=== PATIENT | female | born 1960 | race Caucasian/White ===

== ENCOUNTER → 2017-05-14 | Outpatient (CLI) | payer BC ==
--- NOTE | 2017-05-14 13:40 | Diagnostic Imaging Report ---
Right knee MRI without contrast. History: Knee pain. Decreased range of motion. Pain not responding to conservative management. Meniscal tear. Comparison: None. Technique: Multiplanar multi-sequence MRI of the knee without contrast. Findings: Medial compartment: There is a complex medial meniscus tear with a radial component at the posterior root best seen on axial series 2 image 22. The medial meniscus is partially subluxed to the periphery. The medial compartmental articular cartilage surfaces are thinned with regions of fraying in the patient. There is a subchondral microtrabecular fracture at the medial tibial plateau with underlying bone marrow edema best seen on series 3 image 10. No cortical fracture is seen. The medial collateral ligament complex is intact. Lateral compartment: No meniscal tear or cartilage abnormality. The LCL complex is normal. Intercondylar notch: The ACL and PCL are intact. Patellofemoral compartment: No chondromalacia or patellar dislocation. Extensor mechanism: The quadriceps and patellar tendons are normal. Other findings: There is a moderate-sized joint effusion and synovitis. There is no acute fracture, subluxation or avascular necrosis. IMPRESSION: Complex medial meniscus tear with radial component at the posterior root. Subchondral microtrabecular fracture at the medial tibial plateau with underlying bone marrow edema. No cortical fracture is seen. Signed by: Dr. Zuhair Nicolas M.D. on 05/14/2017 1:37 PM
== END ==
LOC: MRI 10:46
PROVIDERS: ATTEND Specialist
DX: S83.221A Peripheral tear of medial meniscus, current injury, right knee, initial encounter (principal)

== ENCOUNTER → 2017-06-03 | Day surgery (SDC) | payer BC ==
--- NOTE | 2017-06-02 11:20 | Diagnostic Imaging Report ---
PROCEDURE: X-RAY CHEST, TWO VIEWS COMPARISON: None. INDICATIONS: PREOPERATIVE CHEST XRAY FOR RIGHT KNEE SURGERY FINDINGS: Lungs are well-inflated. No focal airspace consolidation, pleural effusion, or pneumothorax. Atherosclerotic calcification of the thoracic aorta. Normal heart size. Calcified left hilar lymph node. No pulmonary edema. No acute osseous abnormality. CONCLUSION: No acute cardiopulmonary abnormality. Dictated by: Russel Toussaint M.D. on 06/02/2017 at 11:20 Electronically approved by: Russel Toussaint M.D. on 06/02/2017 at 11:20
[~2017-06-03] MED LIST: BUPIVACAINE 0.5%/EPI 30 ML SDV INJ ONE; CEFAZOLIN SOD 2 GM/D5W 50ML 50 ML IV ONE; CLOBETASOL PROP15 G1 TOP; DEXAMETHASONE SOD PHOS INJ 4 MG/ML VIAL ONE; DOXEPIN TOP; EPHEDRINE SULFATE INJ 50 MG/10 ML SYR ONE; FENTANYL CITRATE/PF 100MCG/2 ML INJ ONE; KETOROLAC TROMETHAMINE 30 MG/ML VIAL ONE; LIDOCAINE HCL 2% LOCAL INJ 5 ML SDV VIAL INJ ONE; MIDAZOLAM HCL 2 MG/2 ML VIAL ONE; ONDANSETRON HCL INJ 2 MG/ML VIAL ONE; PROPOFOL IV EMULSION 10 MG/ML 20 ML VIAL ONE; SEVOFLURANE INHAL SOLN 250 ML PEN BTL ONE; diclofenac TOP
--- OUTSIDE RECORDS SUMMARY | 2017-06-03 05:26 | XMS REPORT ---
[facility] Address Unknown Phone Unavailable Care Team Providers Care Cake Icer Name Role Phone CK BARRETT Unavailable Unavailable Problems This patient has no known problems. Allergies, Adverse Reactions, Alerts This patient has no known allergies or adverse reactions. Medications This patient has no known medications. Encounters Start Date/Time End Date/Time Encounter Type Admission Type Attending Clinicians Care Facility Care Department Encounter ID 2017-04-30 14:30:43 2017-04-30 14:30:43 Outpatient [facility] [id number] 2017-04-16 13:34:48 2017-04-16 13:34:48 Outpatient [facility] [id number] 2017-04-16 13:32:30 2017-04-16 13:32:30 Outpatient [facility] [id number] 2017-04-03 09:49:53 2017-04-03 09:49:53 Emergency [facility] [id number] 2017-03-26 13:35:04 2017-03-26 13:35:04 Outpatient [facility] [id number] 2017-01-26 16:12:07 2017-01-26 16:12:07 Outpatient [facility] [id number] 2017-01-26 14:30:51 2017-01-26 14:30:51 Outpatient [facility] [id number] 2016-12-25 00:00:00 2016-12-25 00:00:00 Outpatient [facility] [id number] 2016-12-18 00:00:00 2016-12-18 00:00:00 Outpatient [facility] [id number] 2016-12-10 15:36:26 2016-12-10 15:36:26 Outpatient [facility] [id number] 2016-12-05 00:00:00 2016-12-05 00:00:00 Outpatient [facility] [id number] 2016-11-28 00:00:00 2016-11-28 00:00:00 Outpatient [facility] [id number] 2016-11-28 00:00:00 2016-11-28 00:00:00 Outpatient [facility] [id number] 2016-10-29 15:17:04 2016-10-29 15:17:04 Outpatient [facility] [id number] 2016-10-20 14:40:24 2016-10-20 14:40:24 Outpatient [facility] [id number] 2016-10-17 15:39:59 2016-10-17 15:39:59 Outpatient [facility] [id number] 2016-10-17 14:55:17 2016-10-17 14:55:17 Outpatient [facility] [id number] 2016-09-09 08:29:10 2016-09-09 08:29:10 Outpatient [facility] [id number] 2016-08-29 08:49:25 2016-08-29 08:49:25 Outpatient [facility] [id number] 2016-08-25 10:17:23 2016-08-25 10:17:23 Outpatient [facility] [id number] Results Test Description Test Time Test Comments Text Results Atomic Results Result Comments CHEST 2 VIEWS [place] [address] Patient Name: PARIS SAXENA MR #: [id number] : 1960 Age/Sex: 57/F Req #: [id number] Adm Physician: Ordered by: CK BARRETT MD Report #: [id number] Location: OR Room/Bed: Procedure: [id number] DX/CHEST 2 VIEWS Exam Date: 06/02/17 Exam Time: 1015 REPORT STATUS: Signed PROCEDURE: X-RAY CHEST, TWO VIEWS COMPARISON: None. INDICATIONS: PREOPERATIVE CHEST XRAY FOR RIGHT KNEE SURGERY FINDINGS: Lungs are well-inflated. No focal airspace consolidation, pleural effusion, or pneumothorax. Atherosclerotic calcification of the thoracic aorta. Normal heart size. Calcified left hilar lymph node. No pulmonary edema. No acute osseous abnormality. CONCLUSION: No acute cardiopulmonary abnormality. Dictated by: Rosalind Arboleda M.D. on 06/02/2017 at 11:20 Electronically approved by: Rosalind Arboldea M.D. on 06/02/2017 at 11:20 Dictated By: ROSALIND ARBOLEDA MD Transcribed By: DALILA on 06/02/17 112 COPY TO: CK BARRETT MD MRI RIGHT KNEE WO [place] [address] Patient Name: PARIS SAXENA MR #: [id number] : 1960 Age/Sex: 56/F Req #: [id number] Adm Physician: Ordered by: CK BARRETT MD Report #: [id number] Location: MRI Room/Bed: Procedure: [id number] MRI/MRI RIGHT KNEE WO Exam Date: Exam Time: REPORT STATUS: Signed Right knee MRI without contrast. History: Knee pain. Decreased range of motion. Pain not responding to conservative management. Meniscal tear. Comparison: None. Technique: Multiplanar multi-sequence MRI of the knee without contrast. Findings: Medial compartment: There is a complex medial meniscus tear with a radial component at the posterior root best seen on axial series 2 image 22. The medial meniscus is partially subluxed to the periphery. The medial compartmental articular cartilage surfaces are thinned with regions of fraying in the patient. There is a subchondral microtrabecular fracture at the medial tibial plateau with underlying bone marrow edema best seen on series 3 image 10. No cortical fracture is seen. The medial collateral ligament complex is intact. Lateral compartment: No meniscal tear or cartilage abnormality. The LCL complex is normal. Intercondylar notch: The ACL and PCL are intact. Patellofemoral compartment: No chondromalacia or patellar dislocation. Extensor mechanism: The quadriceps and patellar tendons are normal. Other findings: There is a moderate-sized joint effusion and synovitis. There is no acute fracture, subluxation or avascular necrosis. IMPRESSION: Complex medial meniscus tear with radial component at the posterior root. Subchondral microtrabecular fracture at the medial tibial plateau with underlying bone marrow edema. No cortical fracture is seen. Signed by: Dr. Zuhair Nicolas M.D. on 05/14/2017 1:37 PM Dictated By: ZUHAIR NICOLAS MD, MD [id number] Transcribed By: JUANCARLOS on 05/14/17 1335 COPY TO: CK BARRETT MD
--- NOTE | 2017-06-03 09:14 | Operative Report ---
DATE OF PROCEDURE: June 03, 2017 PREOPERATIVE DIAGNOSES 1. Right knee medial meniscus tear. 2. Right knee degenerative joint disease of the knee. POSTOPERATIVE DIAGNOSES 1. Right knee medial meniscus tear. 2. Right knee degenerative joint disease of the knee. 3. Right knee symptomatic medial shelf plica. OPERATIONS/PROCEDURES PERFORMED 1. The patient underwent a right knee examination under anesthesia. 2. Right knee arthroscopy. 3. Right knee partial medial meniscectomy. 4. Right knee chondroplasty of the patella, trochlea, medial femoral condyle, medial tibial plateau, and lateral tibial plateau. 5. Resection of a symptomatic medial shelf plica. SALES PROMOTER: None. ANESTHESIA: General intubation anesthesia. IV FLUIDS: Per the anesthesia record. BRIEF DESCRIPTION OF THE PATIENT'S OPERATIVE PROCEDURE: Ms. Rollins was taken to the operating room and placed in the supine position on the operating table. Following induction of general anesthesia, as well as endotracheal intubation, the patient's right lower extremity was examined under anesthesia. She was found to have a mild effusion within the knee joint, but otherwise ligamentously stable knee. The patient's lower extremity was prepped and draped in a standard surgical fashion. A 2-portal technique was used to provide this patient arthroscopic evaluation of the knee joint. Examination of the suprapatellar pouch, medial and lateral gutters found no evidence of loose bodies. There was, however, evidence of chondromalacia of the patellar and trochlear surfaces. There was also a large and inflamed medial shelf plica interdigitating between the patella and trochlea. The scope was advanced to the medial compartment. Examination of the medial compartment demonstrated a torn and macerated posterior horn of the medial meniscus, including the medial meniscus root. There was also significant chondromalacia of the medial femoral condyle and medial tibial plateau. A combination of biting forceps and a motorized shaver were used to resect the torn portion of the meniscus. Chondroplasties of the medial femoral condyle and medial tibial plateau were performed at this time. The scope was advanced into the intercondylar notch. The anterior cruciate ligament was identified and found to be intact. The scope was advanced in the lateral compartment, and there was chondromalacia of the lateral tibia plateau. A chondroplasty of this surface was performed. The scope was then advanced in the suprapatellar pouch and chondroplasties of the patella and trochlea were performed. The medial shelf plica was also resected at this time. The knee was deflated of its sterile saline. Each of the portal sites were closed using 4-0 nylon suture. The portal sites as well as the knee itself were injected with 0.5% Marcaine with epinephrine. Sterile dressings were applied. The patient was awakened and taken to the postanesthesia care in stable condition. Job#: [id number]
== END | disposition home or self-care (01) ==
LOC: OR 05:24
PROVIDERS: ATTEND Specialist
DX: S83.221A Peripheral tear of medial meniscus, current injury, right knee, initial encounter (principal); M17.11 Unilateral primary osteoarthritis, right knee; M67.51 Plica syndrome, right knee; M22.41 Chondromalacia patellae, right knee; S83.511A Sprain of anterior cruciate ligament of right knee, initial encounter; E78.5 Hyperlipidemia, unspecified; Z01.810 Encounter for preprocedural cardiovascular examination; X58.XXXA Exposure to other specified factors, initial encounter; Z01.818 Encounter for other preprocedural examination; Z87.891 Personal history of nicotine dependence
CPT/HCPCS: 29881; 71046; 93005; J1100; J1885; J2001; J2250; J2405

== ENCOUNTER 2017-06-30 07:00 | Outpatient (RCR) | payer BC ==
[~2017-06-30 07:00] MED LIST changes: -BUPIVACAINE 0.5%/EPI 30 ML SDV INJ ONE; -CEFAZOLIN SOD 2 GM/D5W 50ML 50 ML IV ONE; -DEXAMETHASONE SOD PHOS INJ 4 MG/ML VIAL ONE; -EPHEDRINE SULFATE INJ 50 MG/10 ML SYR ONE; -FENTANYL CITRATE/PF 100MCG/2 ML INJ ONE; -KETOROLAC TROMETHAMINE 30 MG/ML VIAL ONE; -LIDOCAINE HCL 2% LOCAL INJ 5 ML SDV VIAL INJ ONE; -MIDAZOLAM HCL 2 MG/2 ML VIAL ONE; -ONDANSETRON HCL INJ 2 MG/ML VIAL ONE; -PROPOFOL IV EMULSION 10 MG/ML 20 ML VIAL ONE; -SEVOFLURANE INHAL SOLN 250 ML PEN BTL ONE
== END 2017-07-04 ==
LOC: PT 07:00
PROVIDERS: ATTEND Specialist
DX: M17.11 Unilateral primary osteoarthritis, right knee (principal); M25.561 Pain in right knee; R26.2 Difficulty in walking, not elsewhere classified; M62.81 Muscle weakness (generalized)